=== PATIENT | male | born 1950 | race Caucasian/White ===

== ENCOUNTER → 2022-11-12 13:41 | Outpatient (CLI) | payer OTHER, SELFPAY ==
--- NOTE | 2022-11-12 13:44 | DI.RAD.S_ITS ---
PROCEDURE: XR LUMBAR SPINE MIN 4V INDICATIONS: BACK PAIN TECHNIQUE: 5 views of the lumbar spine were acquired, including bilateral oblique views. COMPARISON: [facility], CT, CT KUB, 10/19/2021, 20:19. FINDINGS: Bones: 5 [id number] vertebrae are present. There is trace anterolisthesis of L2 on L3 and L4 on L5. Moderate chronic vertebral body compression fractures of T12 and L4. No suspicious bony lesions. Multilevel degenerative disc in lumbar spine. Severe facet arthropathy at L4-L5 and L5-S1. Note is made of a left hip prosthesis. Soft tissues: Overlying bowel gas pattern is normal. No suspicious soft tissue calcifications. Oblique images: No pars defects. IMPRESSION: 1. Moderate chronic compression fractures of T12 and L4. New line 2. Multilevel degenerative disc and facet disease. Dictated by: Abhilash Sanchez M.D. on 11/12/2022 at 16:47 Approved by: Abhilash Sanchez M.D. on 11/12/2022 at 16:50
== END ==
PROVIDERS: Referring Provider Physical Medicine & Rehabilitation; Visit Provider Physical Medicine & Rehabilitation
DX: M47.816 Spondylosis without myelopathy or radiculopathy, lumbar region (principal); M47.817 Spondylosis without myelopathy or radiculopathy, lumbosacral region; M51.36 Other intervertebral disc degeneration, lumbar region; M48.062 Spinal stenosis, lumbar region with neurogenic claudication; S22.080S Wedge compression fracture of T11-T12 vertebra, sequela; S32.040S Wedge compression fracture of fourth lumbar vertebra, sequela; S32.050S Wedge compression fracture of fifth lumbar vertebra, sequela; R42 Dizziness and giddiness; R26.81 Unsteadiness on feet; Z87.09 Personal history of other diseases of the respiratory system; Z86.59 Personal history of other mental and behavioral disorders; Z86.69 Personal history of other diseases of the nervous system and sense organs; Z95.0 Presence of cardiac pacemaker; H53.9 Unspecified visual disturbance; M54.9 Dorsalgia, unspecified; Z96.642 Presence of left artificial hip joint
CPT/HCPCS: 72110; 99215

== ENCOUNTER 2022-12-16 09:42 | Outpatient (CLI) | payer OTHER, SELFPAY ==
[2022-12-16] VITALS (10 sets, daily range): BP systolic 90–110; BP diastolic 65–80; PULSE 69–82; RESP 11–18; TEMP 36.4; O2SAT 95–98
--- NOTE | 2022-12-16 09:49 | DI.RAD.S_ITS ---
PROCEDURE: PAIN L/S TRANSFORAM INJECT MUSA COMPARISON: [facility], CR, XR LUMBAR SPINE MIN 4V, 11/12/2022, 14:07. INDICATIONS: SPONDYLOSIS FINDINGS: Fluoroscopic spot filming was performed to verify placement of spinal needles on both sides at the L4-L5 level, as labeled on the films. Appropriate location of the needle tips was confirmed by injection of iodinated contrast. IMPRESSION: Intraprocedural examination demonstrating appropriate positions of the needles. Dictated by: Ezra Martinez M.D. on 12/16/2022 at 13:04 Approved by: Ezra Martinez M.D. on 12/16/2022 at 13:04
[2022-12-16] MEDS: SODIUM CHLORIDE 0.9% 250 ML 21 ML IV (11:00)
[2022-12-16] MEDS: BETAMETHASONE 30 MG/5 ML MDV 6 MG INJ (11:03)
[2022-12-16] MEDS: DEXAMETHASONE 10 MG/ML VIAL 20 MG INJ (11:04)
[2022-12-16] MEDS: BUPIVACAINE 0.25% (PF) VIAL 2 ML INJ (11:05)
[2022-12-16] MEDS: IOPAMIDOL 15 ML VIAL 3 ML INJ (11:05)
[2022-12-16] MEDS: MIDAZOLAM 2 MG/2 ML VIAL 1 MG IV (11:06)
[2022-12-16] MEDS: MIDAZOLAM 5 MG/ML VIAL 1 MG IV (11:09)
--- NOTE | 2022-12-16 11:19 | PM.PROC.IR.1 ---
Date/Time/Diagnoses Date of procedure: 12/16/22 Time of procedure: 11:19 Pre-procedure diagnosis: 1. FORAMINAL STENOSIS WITH LE SYMPTOMS Procedure Notes Procedure: 1. FLUOROSCOPICALLY GUIDED CONTRAST CONTROLLED TRANSFORAMINAL EPIDURAL STEROID INJECTION - BILATERAL L4/5 TFESI Indications: Niko is referred by ADEN Davis for treatment of Foraminal Stenosis with bilateral LE Symptoms Physician: Niko Castro Total Fluoroscopy time (seconds): 20 Total sedation minutes: 14 Complications: none Procedure in detail & Post-procedure care: FINDINGS Foraminal Nerve Root Compression secondary to disc disease and facet hypertrophy DESCRIPTION OF PROCEDURE Following review of allergy and review of potential side effects and complications, including, but not necessarily limited to, infection, allergic reaction, local tissue breakdown, stroke, temporary or permanent nerve injury, paralysis, and possible , the patient indicated that the patient understood and agreed to proceed. An informed consent document was signed by the patient, witnessed by a nurse, and placed in the patient's chart. Additionally, other treatment options including medications, modalities, and physical therapy were reviewed with the patient. After review of previous anaesthesic history and IV conscious sedation the patient was deemed safe to proceed with today?s procedure with IV conscious sedation as ASA class II designation. Safety time-out was performed to confirm patient ID, procedure to be performed and site of procedure. IV sedation was accomplished with a combination of 2mg of Versed was administered by the RN after DO order, titrated to patient comfort during the course of the procedure while the patient remained responsive to all verbal commands In the prone position following sterile prep and drape of the lumbar region, the right L4/5 posterior neuroforamen was identified fluoroscopically. The skin was anesthetized via a 25-gauge 1.5-inch needle with 1% lidocaine solution. At this point, a 25-gauge 3.5-inch spinal needle was atraumatically introduced and advanced under fluoroscopic guidance through the posterior right L4/5 neuroforamen to approximately the anterior aspect of the canal. Depth was confirmed on lateral view. Following negative aspiration, injection of approximately 1.5cc of Isovue 200 under live fluoroscopy in the AP view confirmed excellent flow along the nerve root, into the epidural space without vascular or intrathecal uptake observed Radiological data, including multiple fluoroscopic views of the lumbosacral spine, reveal a spinal needle at the right L4/5 posterior neuroforamen. Subsequent views show flow of contrast material flowing superiorly and inferiorly along the nerve root confirming epidural flow. Subsequently, a test dose of 1.5cc of 1% lidocaine solution was administered and patient was observed for two minutes for signs or symptoms of complications, including abdominal pain, shortness of breath, bilateral upper or lower extremity weakness, nausea and vomiting, prior to steroid injection. At this point, a total of 2cc or 10mg of dexamethasone and 6mg betamethasone was injected without incident. Attention was then refocused to the left L4/5 level where the identical procedure was replicated. The procedure tolerated the procedure well without signs or symptoms of complications prior to transfer to the recovery area continued monitoring without incident. The patient was then transferred to the recovery area where they were observed for an appropriate time after the injection. The patient reported a VAS score of 7 prior to the procedure and a post-procedure VAS of 0. POST OP INSTRUCTIONS The patient was provided a Pain Log to continue to record their response to the target-specific procedure prior to follow-up visit with their referring physician. Additionally, specific post-injection care instructions and a contact number to our office were provided if concerns arise regarding possible complications associated with the procedure are suspected.
== END 2022-12-16 11:40 | disposition home or self-care (01) ==
PROVIDERS: PCP Nurse Practitioner Primary Care; Referring Provider Physical Medicine & Rehabilitation; Visit Provider Physical Medicine & Rehabilitation
DX: M51.16 Intervertebral disc disorders with radiculopathy, lumbar region; M47.26 Other spondylosis with radiculopathy, lumbar region; M48.061 Spinal stenosis, lumbar region without neurogenic claudication
CPT/HCPCS: 64483; 99152; J0702; J1100; J2250; J3490

== ENCOUNTER 2023-02-19 12:29 | Outpatient (CLI) | payer OTHER, SELFPAY ==
[2023-02-19] VITALS (8 sets, daily range): BP systolic 101–126; BP diastolic 65–88; PULSE 69–76; RESP 17–23; TEMP 36.4; O2SAT 93–97
--- NOTE | 2023-02-19 13:30 | DI.RAD.S_ITS ---
PROCEDURE: PAIN L/S FACET INJ/BLK 1ST MUSA INDICATIONS: SPONDYLOSIS COMPARISON: None. FINDINGS: Fluoroscopic spot filming was performed to verify placement of spinal needles at the bilateral L4, L5 and S1 medial branch level(s), as labeled on the films. Appropriate location(s) of the needle tip(s) was confirmed by injection of iodinated contrast. IMPRESSION: Access needles placed for bilateral L4, L5 and S1 medial branch blocks. Dictated by: Sobia Mart MD, PhD on 02/19/2023 at 14:39 Approved by: Sobia Mart MD, PhD on 02/19/2023 at 14:39
[2023-02-19] MEDS: MIDAZOLAM 2 MG/2 ML VIAL IV (13:57)
[2023-02-19] MEDS: LIDOCAINE 1% 20 ML 5 ML INJ (14:00)
[2023-02-19] MEDS: BUPIVACAINE 0.5% (PF) 10 ML VIAL 2 ML INJ (14:01)
[2023-02-19] MEDS: iopamidoL 15 ML VIAL 3 ML INJ (14:01)
--- NOTE | 2023-02-19 14:16 | P.PCN_ITS ---
Date/Time/Diagnoses Date of procedure: 02/19/23 Time of procedure: 14:16 Pre-procedure diagnosis: 1. FACET ARTHROPATHY Post-procedure diagnosis: same Procedure Notes Procedure: 1. BILATERAL- L4, L5 and S1 DIAGNOSTIC MB BLOCKS with LA Anesthetic Indications: Niko is referred by ADEN Davis for treatment of Bilateral Axial LBP. Physician: Niko Castro Total Fluoroscopy time (seconds): 16 Total sedation minutes: 15 Complications: none Procedure in detail & Post-procedure care: DESCRIPTION OF PROCEDURE Fluoroscopically guided, contrast-controlled bilateral L4, L5 and S1 medial branch blocks with 0.5cc of 0.5% Marcaine. Following review of allergy and review of potential side effects and complications, including, but not necessarily limited to, infection, allergic reaction, local tissue breakdown, nerve injury, paralysis, stroke and possible , the patient indicated that the patient understood and agreed to proceed. An informed consent document was signed by the patient, witnessed by a nurse, and placed in the patient's chart. After review of previous anaesthesic history and IV conscious sedation the patient was deemed safe to proceed with today's procedure with IV conscious sed ation as ASA class II designation. Safety time-out was performed to confirm patient ID, procedure to be performed and site of procedure. IV sedation was accomplished with a combination of 3mg of Versed was administered by the RN after DO order, titrated to patient comfort during the course of the procedure while the patient remained responsive to all verbal commands In the prone position, following sterile prep and drape of the lumbar region, the right L4, L5 and S1 anatomical location of the medial branch of the dorsal ramus was identified fluoroscopically. Subsequently an anesthetic skin wheal using 1% lidocaine solution was initiated at each of the anatomical spots. Subsequently then a 22-gauge 3.5-inch spinal needle was atraumatically introduced and advanced under fluoroscopic guidance at each of the corresponding sites at the right L4, L5 and S1 MB. After negative aspiration, 0.2cc of Isovue 200 was injected, confirming placement without vascular or intrathecal uptake. Subsequently then 0.5cc of 0.5% Marcaine solution was injected at each of the corresponding sites at the right L4, L5 and S1 medial branch locations. The identical procedure was replicated on the left. The patient tolerated the procedure well without signs or symptoms of complications prior to transfer to the recovery area continued monitoring without incident. Post-procedure, the patient was monitored initiating provocative activities to measure the amount of relief from block of the facetogenic pain. The patient reported a VAS of 7 prior to the procedure and a post-procedure VAS of 1. It has been a pleasure to assist in the diagnostic and therapeutic care of your patient. POST OP INSTRUCTIONS The patient was provided with a Pain Log to complete over the next several hours and subsequent days prior to the patient's follow up with the ordering physician. If the patient has sleep technician relief to the solution applied, then they may be a candidate for medial branch rhizotomy. The patient is aware, was provided, once again, with a Pain Log and will follow up with the referring physician for review and clinical correlation
== END 2023-02-19 14:38 | disposition home or self-care (01) ==
LOC: RAD 12:31
PROVIDERS: PCP Nurse Practitioner Primary Care; Referring Provider Physical Medicine & Rehabilitation; Visit Provider Physical Medicine & Rehabilitation
DX: M47.816 Spondylosis without myelopathy or radiculopathy, lumbar region (principal)
CPT/HCPCS: 64493; 64494; 99152; J2250

== ENCOUNTER 2023-03-05 11:59 | Outpatient (CLI) | payer OTHER, SELFPAY ==
[2023-03-05] VITALS (8 sets, daily range): BP systolic 105–133; BP diastolic 66–82; PULSE 69–79; RESP 15–24; TEMP 36.2; O2SAT 95–97
--- NOTE | 2023-03-05 13:00 | DI.RAD.S_ITS ---
PROCEDURE: PAIN L/S FACET INJ/BLK 1ST MUSA INDICATIONS: SPONDYLOSIS COMPARISON: [facility], , PAIN L/S FACET INJ/BLK 1ST MUSA, 02/19/2023, 15:01. FINDINGS: Fluoroscopic spot filming was performed to verify placement of spinal needles at the bilateral L4, L5 and S1 level(s), as labeled on the films. Appropriate location(s) of the needle tip(s) was confirmed by injection of iodinated contrast. IMPRESSION: Needle placement at bilateral L4, L5 and S1 levels with contrast injection. Approved by: Yolis Buchanan M.D. on 03/05/2023 at 18:28
[2023-03-05] MEDS: MIDAZOLAM 2 MG/2 ML VIAL IV (13:43)
[2023-03-05] MEDS: iopamidoL 15 ML VIAL 3 ML INJ (13:59)
[2023-03-05] MEDS: LIDOCAINE 1% 20 ML 5 ML INJ (14:00)
[2023-03-05] MEDS: LIDOCAINE 2% INJ MDV 20ML 5 ML INJ (14:00)
--- NOTE | 2023-03-05 14:04 | PM.PROC.IR.1 ---
Date/Time/Diagnoses Date of procedure: 03/05/23 Time of procedure: 14:04 Pre-procedure diagnosis: 1. FACET ARTHROPATHY Post-procedure diagnosis: same Procedure Notes Procedure: 1. BILATERAL- L4, L5 and S1 DIAGNOSTIC MB BLOCKS with SA Anesthetic Indications: Niko is referred by ADEN Davis for treatment of Bilateral Axial LBP. Physician: Niko Castro Total Fluoroscopy time (seconds): 12 Total sedation minutes: 15 Complications: none Procedure in detail & Post-procedure care: DESCRIPTION OF PROCEDURE Fluoroscopically guided, contrast-controlled bilateral L4, L5 and S1 medial branch blocks with 0.5cc of 2% Lidocaine. Following review of allergy and review of potential side effects and complications, including, but not necessarily limited to, infection, allergic reaction, local tissue breakdown, nerve injury, paralysis, stroke and possible , the patient indicated that the patient understood and agreed to proceed. An informed consent document was signed by the patient, witnessed by a nurse, and placed in the patient's chart. After review of previous anaesthesic history and IV conscious sedation the patient was deemed safe to proceed with today's procedure with IV conscious sedation as ASA class II designation. Safety time-out was performed to confirm patient ID, procedure to be performed and site of procedure. IV sedation was accomplished with a combination of 2mg of Versed was administered by the RN after DO order, titrated to patient comfort during the course of the procedure while the patient remained responsive to all verbal commands In the prone position, following sterile prep and drape of the lumbar region, the right L4, L5 and S1 anatomical location of the medial branch of the dorsal ramus was identified fluoroscopically. Subsequently an anesthetic skin wheal using 1% lidocaine solution was initiated at each of the anatomical spots. Subsequently then a 22-gauge 3.5-inch spinal needle was atraumatically introduced and advanced under fluoroscopic guidance at each of the corresponding sites at the right L4, L5 and S1 MB. After negative aspiration, 0.2cc of Isovue 200 was injected, confirming placement without vascular or intrathecal uptake. Subsequently then 0.5cc of 2% Lidocaine solution was injected at each of the corresponding sites at the right L4, L5 and S1 medial branch locations. The identical procedure was replicated on the left. The patient tolerated the procedure well without signs or symptoms of complications prior to transfer to the recovery area continued monitoring without incident. Post-procedure, the patient was monitored initiating provocative activities to measure the amount of relief from block of the facetogenic pain. The patient reported a VAS of 7 prior to the procedure and a post-procedure VAS of 1. It has been a pleasure to assist in the diagnostic and therapeutic care of your patient. POST OP INSTRUCTIONS The patient was provided with a Pain Log to complete over the next several hours and subsequent days prior to the patient's follow up with the ordering physician. If the patient has electronic industrial controls mechanic relief to the solution applied, then they may be a candidate for medial branch rhizotomy. The patient is aware, was provided, once again, with a Pain Log and will follow up with the referring physician for review and clinical correlation
== END 2023-03-05 14:23 | disposition home or self-care (01) ==
LOC: RAD 12:00
PROVIDERS: PCP Nurse Practitioner Primary Care; Referring Provider Physical Medicine & Rehabilitation; Visit Provider Physical Medicine & Rehabilitation
DX: M47.816 Spondylosis without myelopathy or radiculopathy, lumbar region (principal); M47.817 Spondylosis without myelopathy or radiculopathy, lumbosacral region
CPT/HCPCS: 64493; 64494; 99152; J2250

== ENCOUNTER 2023-04-07 10:30 | Outpatient (CLI) | payer OTHER, SELFPAY ==
[2023-04-07] VITALS (11 sets, daily range): BP systolic 112–131; BP diastolic 73–87; PULSE 67–83; RESP 9–20; TEMP 36.4; O2SAT 90–99
--- NOTE | 2023-04-07 11:15 | DI.RAD.S_ITS ---
PROCEDURE: PAIN L/S MED/LAT N RFA BILAT INDICATIONS: SPONDYLOSIS COMPARISON: [facility], CT, CT MYELOGRAM LUMBAR SPINE, 12/27/2021, 12:27. CR, XR LUMBAR SPINE MIN 4V, 11/12/2022, 14:07. FINDINGS: Fluoroscopic spot filming was performed to verify placement of spinal needles at the L4, L5 and S1 level(s) bilaterally, as labeled on the films. Appropriate location(s) of the needle tip(s) was confirmed by injection of iodinated contrast. IMPRESSION: Fluoroscopy for pain management. Dictated by: Abhilash Sanchez M.D. on 04/07/2023 at 13:45 Approved by: Abhilash Sanchez M.D. on 04/07/2023 at 13:46
[2023-04-07] MEDS: MIDAZOLAM 2 MG/2 ML VIAL 1 MG IV (11:39)
[2023-04-07] MEDS: fentaNYL 100 MCG/2 ML INJ 50 MCG IV (11:39)
[2023-04-07] MEDS: LIDOCAINE 1% 20 ML 5 ML INJ (11:42)
[2023-04-07] MEDS: BUPIVACAINE 0.5% (PF) 10 ML VIAL 5 ML INJ (11:43)
--- NOTE | 2023-04-07 12:19 | P.PCN_ITS ---
Date/Time/Diagnoses Date of procedure: 04/07/23 Time of procedure: 12:19 Pre-procedure diagnosis: 1. RECALCITRANT FACET ARTHROPATHY Post-procedure diagnosis: same Procedure Notes Procedure: 1. BILATERAL L4 AND L5 MEDIAL BRANCH RADIOFREQUENCY NEUROTOMY AND S1 DORSAL RAMUS BRANCH RADIOFREQUENCY NEUROTOMY Indications: Niko is referred by ADEN Davis for treatment of facet arthropathy. Physician: Niko Castro Total Fluoroscopy time (seconds): 18 Total sedation minutes: 35 Complications: none Procedure in detail & Post-procedure care: DESCRIPTION OF PROCEDURE Bilateral L4 and L5 medial branch radiofrequency neurotomy and bilateral S1 dorsal ramus radiofrequency neurotomy under fluoroscopy with conscious sedation. The patient is well known to this clinic having undergone previous facet injections with good but temporary relief. The patient has experienced appropriate, concordant relief with previous facet and median branch blocks but the patient's pain has been recalcitrant to further conservative measures. Therefore, based upon the patient's relief and persistent symptoms, the patient is considered an appropriate candidate for facet rhizotomy. All of the patient's questions regarding the risks versus benefits of the procedure, including, but not limited to, bleeding, infection, temporary as well as lasting nerve injury, paralysis, stroke, and , as well treatment alternatives were answered to satisfaction. After obtaining informed consent, denial of pertinent drug allergies, as well as being made aware of the potential risks of bleeding, infection, spinal cord trauma, paralysis, temporary and permanent nerve damage, seizure, stroke, and possible , the patient was brought to the fluoroscopy suite and positioned prone on the fluoroscopy table. The lumbar region was prepped in usual sterile fashion and covered with a fenestrated drape in the usual sterile fashion. Appropriate monitors applied including pulse oximeter, pulse, and blood pressure for regular monitoring throughout the procedure. After review of previous anaesthesic history and IV conscious sedation the patient was deemed safe to proceed with today's procedure with IV conscious sedation as ASA class II designation. Safety time-out was performed to confirm patient ID, procedure to be performed and site of procedure. IV sedation was accomplished with a combination of 1mg of Versed and 50mcg of Fentanyl administered by the RN after DO order, titrated to patient comfort during the course of the procedure while the patient remained responsive to all verbal commands. After local infiltration using 1% lidocaine, under fluoroscopic guidance, a 10- cm RF insulated needle with a 10-mm active tip was positioned parallel to the junction of the right sacral ala and the superior articulating process where the S1 dorsal ramus resides. Needle placement was confirmed with motor stimulation of .5v on the right which produced local stimulation without radicular component. The stimulation was then increased to 2v with, once again, only local multifidus stimulation without radicular component. The needle was then removed and the identical procedure was performed along the length of the right L5 medial branch with motor stimulation at .7v on the right. The identical procedure was once again performed along the length of the right L4 medial branch with motor stimulation of .5v on the right. The medial branches were then anesthetised with 0.5% Marcaine. This was then followed by two discreet lesions performed at 80 degrees Celsius for 90 seconds each. The identical procedure was repeated on the left. The patient tolerated the procedure well without signs or symptoms of complications prior to transfer to the recovery area continued monitoring without incident. The patient was then transferred to the recovery area where they were observed for an appropriate period of time after the injection. The patient reported a VAS score of 9 prior to the procedure and a post-procedure VAS of 0. POST OP INSTRUCTIONS The patient was provided a Pain Log to continue to record the patient's response to the target-specific procedure prior to the patient's follow-up visit with the referring physician. Additionally, specific post-injection care instructions and a contact number to our office were provided if concerns arise regarding possible complications associated with the procedure are suspected.
--- NOTE | 2023-04-08 11:15 | PC.NURSE ---
Procedure follow up call: Spoke with Sergio @ [phone]. C/O pain, more than he expected but no other issues. Transferred to clinic to check in with Dr. Castro as well as schedule a follow up appointment.
== END 2023-04-07 12:29 | disposition home or self-care (01) ==
PROVIDERS: PCP Nurse Practitioner Primary Care; Referring Provider Physical Medicine & Rehabilitation; Visit Provider Physical Medicine & Rehabilitation
DX: M47.816 Spondylosis without myelopathy or radiculopathy, lumbar region (principal); M47.817 Spondylosis without myelopathy or radiculopathy, lumbosacral region
CPT/HCPCS: 64635; 64636; 99152; 99153; J2250; J3010